=== PATIENT | female | born 1945 | race Two or more races ===

== ENCOUNTER → 2016-07-30 | Outpatient (CLI) | payer OTHER, MEDICARE ==
--- NOTE | 2016-07-30 17:26 | DX ---
Right knee, 3 views History: Pain. Comparison: None available. Findings: No fracture is identified. Alignment is normal. Bone mineralization is normal. Small patell ar osteophytes are present without significant joint space narrowing. Chondrocalcinosis is noted. The re is no joint effusion. Impression: Chondrocalcinosis with minimal patellofemoral osteoarthritis.
== END ==
LOC: CIMAGING 11:00
PROVIDERS: ATTEND Family Medicine
DX: M11.261 Other chondrocalcinosis, right knee (principal)
CPT/HCPCS: 73562-PO

== ENCOUNTER → 2016-08-30 | Outpatient (CLI) | payer OTHER, MEDICARE ==
--- NOTE | 2016-08-30 17:59 | MR ---
Limited MRI Examination of the Right Hip History: Severe right hip pain. Discussion: A limited examination was obtained as the patient was unable to tolerate the study second mt to right hip pain. After localizer, only a coronal T1-weighted series was obtained. Findings: The single coronal T1-weighted series demonstrates severe volume loss and collapse of the r ight femoral head with [id number] articulation with the acetabulum. This may be secondary to avascu lar necrosis or advanced degenerative arthropathy. There is loss of approximately 50% volume of the r ight femoral head. Associated right hip joint effusion, moderate size. Prior left hip arthroplasty with metallic artifact. Sacroiliac joints and symphysis pubis appear grossly normal. Impression: 1. Markedly limited examination secondary to advanced right hip pain. Examination could be reschedule d with intravenous sedation, as clinically necessary. 2. Limited exam demonstrates marked loss of volume and collapse of the right femoral head with advanc ed osteoarthritis. 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
== END ==
LOC: FIMAGING 09:14
PROVIDERS: ATTEND Physician Assistant
DX: M25.551 Pain in right hip (principal); M16.11 Unilateral primary osteoarthritis, right hip; M25.451 Effusion, right hip; R93.8 Abnormal findings on diagnostic imaging of other specified body structures

== ENCOUNTER 2016-09-26 14:15 | Inpatient (IN) | payer OTHER, MEDICARE ==
[2016-10-01 11:04] LABS: % IMMATURE GRANULYOCYTES 0.3 % (0.0-1.1); ABSOLUTE IMMATURE GRANULOCYTES 0.03 10^3/uL (0.00-0.10); ADD DIFF? NO; ADD MORPH? NO; ADD SCAN? NO; ATYPICAL LYMPHOCYTE FLAG 0 (0-99); FRAGMENT RBC FLAG 0 (0-99); HEMATOCRIT 43.9 % (38.0-47.0); LEFT SHIFT FLG 0 (0-99); LIPEMIA HEMOLYSIS FLAG 90 (0-99); MEAN CELL HEMOGLOBIN CONCENTR. 34.2 g/dL (32.4-36.7); MEAN CELL VOLUME 93.6 fL (81.5-99.8); MEAN PLATELET VOLUME 8.8 fL (8.7-11.7); PLATELET CLUMPS FLAG 0 (0-99); PLATELET COUNT 361 10^3/uL (150-400); RED BLOOD CELL COUNT 4.69 10^6/uL (4.18-5.33); RED CELL DISTRIBUTION WIDTH 12.8 % (11.5-15.2)
[2016-10-10] MEDS ORDERED: DEXAMETHASONE 4 MG/ML VIAL IVP ONE (06:00)
[2016-10-10] MEDS ORDERED: CEFAZOLIN 2 GM/DEXTR 100 ML IV ONE (06:00)
[2016-10-10] MEDS ORDERED: ROPI/epiNEPH/KETOROLAC JOINT COCKTAIL IU ONE (06:00)
[2016-10-10] MEDS ORDERED: CHLORHEXIDINE GLUC HIBICLENS 118 ML BTL TP ONE (06:00)
[2016-10-10] MEDS ORDERED: TRANEXAMIC ACID 3,000 MG in NS 50 ML IRR ONE (06:00)
[2016-10-10] MEDS ORDERED: FAMOTIDINE 20 MG TAB PO ONE (06:00)
[2016-10-10] MEDS ORDERED: ACETAMINOPHEN 325 MG TAB PO ONE (06:00)
[2016-10-10] MEDS ORDERED: LIDOCAINE 1% 2 ML INJ ONE (06:46)
[2016-10-10] MEDS ORDERED: SKIN ADHESIVE (DERMABOND) 1 EACH TP ONE (06:47)
[2016-10-10] MEDS ORDERED: TRANEXAMIC ACID 3,000 MG/50 ML BAG IRR ONE (06:47)
[2016-10-10] MEDS ORDERED: fentaNYL 100 MCG/2 ML INJ ONE (07:30)
[2016-10-10] MEDS ORDERED: PROPOFOL/EMULSION 500 MG/50 ML BOTTLE IV ONE (07:31)
[2016-10-10] MEDS ORDERED: LIDOCAINE 2% 5 ML SDV ONE (07:39)
[2016-10-10] MEDS ORDERED: LIDOCAINE 1% 5 ML SDV ID PRN (07:41)
[2016-10-10] MEDS ORDERED: LR 1,000 ML IV ONE (07:41)
[2016-10-10] MEDS ORDERED: MIDAZOLAM 2 MG/2 ML VIAL ONE (07:47)
[2016-10-10] MEDS ORDERED: KETAMINE 100 MG/10 ML SYR IVP ONE (08:38)
[2016-10-10] MEDS ORDERED: epHEDrine SULFATE 10 MG/ML SYR ONE (08:58)
--- NOTE | 2016-10-10 09:23 | POSTOPPROG ---
Post Op Note Date of Operation: 10/10/16 Surgeon: Agnes Paul House Painter: andrew paul Anesthesiologist: dr. de guzman Anesthesia: Spinal Pre-op Diagnosis: right hip OA Post-op Diagnosis: same Indication: right hip pain due to OA that failed conservative measures Procedure: R KAREN ant approach Findings: severe hip OA Inf/Abcess present in the surg proc area at time of surgery?: No EBL: 100-500
[2016-10-10] MEDS ORDERED: LACTULOSE 20 GM/30 ML UDCUP PO PRN (09:24)
[2016-10-10] MEDS ORDERED: diphenhydrAMINE 25 MG CAP PO PRN (09:24)
[2016-10-10] MEDS ORDERED: ONDANSETRON 4 MG/2 ML VIAL IVP PRN (09:24)
[2016-10-10] MEDS ORDERED: TEMAZEPAM 15 MG CAP PO PRN (09:24)
[2016-10-10] MEDS ORDERED: METOCLOPRAMIDE 10 MG/2 ML VIAL IVP PRN (09:24)
[2016-10-10] MEDS ORDERED: CYCLOBENZAPRINE 10 MG TAB PO PRN (09:24)
[2016-10-10] MEDS ORDERED: PHARMACY PAIN CONSULT 1 EA MISC PRN (09:24)
[2016-10-10] MEDS ORDERED: ONDANSETRON DISINTEGRATING 4 MG TAB PO PRN (09:24)
[2016-10-10] MEDS ORDERED: DIPHENOXYLATE/ATROPINE LOMOTIL 1 TAB PO PRN (09:24)
[2016-10-10] MEDS ORDERED: POLYETHYLENE GLYCOL 3350 17 GM PKT PO PRN (09:24)
[2016-10-10] MEDS ORDERED: BISACODYL 10 MG SUPP PR PRN (09:24)
[2016-10-10] MEDS ORDERED: PROMETHAZINE HCL 25 MG SUPPR PR PRN (09:24)
[2016-10-10] MEDS ORDERED: MAGNESIUM HYDROXIDE 30 ML UDCUP PO PRN (09:24)
[2016-10-10] MEDS ORDERED: valACYclovir 500 MG TAB PO PRN (09:26)
[2016-10-10] MEDS ORDERED: LR 1,000 ML IV SCH (09:30)
[2016-10-10] MEDS: ACETAMINOPHEN 325 MG TAB PO SCH ×3 (11:41→23:48)
[2016-10-10] MEDS: oxyCODONE IR 5 MG TAB PO PRN ×4 (13:06→23:48)
[2016-10-10] MEDS: ceFAZolin 2 GM/DEXTROSE 100 ML IV SCH ×2 (13:27→21:18)
[2016-10-10] MEDS ORDERED: NON-FORMULARY NEW DRUG (Simvastatin [Simvastatin] 10 MG) PO SCH (18:00)
[2016-10-10 19:08] VITALS: RESP 16
[2016-10-10] MEDS: FAMOTIDINE 20 MG TAB PO SCH (19:52)
[2016-10-10] MEDS: ASPIRIN 325 MG TAB PO SCH (19:52)
[2016-10-10] MEDS: SENNOSIDES/DOCUSATE SODIUM TAB PO SCH (19:52)
[2016-10-11] MEDS: ACETAMINOPHEN 325 MG TAB PO SCH ×2 (04:39→11:28)
[2016-10-11] MEDS: oxyCODONE IR 5 MG TAB PO PRN ×3 (04:39→11:28)
[2016-10-11 05:04] LABS: HEMATOCRIT 33.7 % (38.0-47.0); HEMOGLOBIN 11.2 g/dL (12.6-16.3)
[2016-10-11 07:24] VITALS: BP 132/70; PULSE 80; TEMP 98.4; O2SAT 95
[2016-10-11] MEDS: ASPIRIN 325 MG TAB PO SCH (08:29)
[2016-10-11] MEDS: FAMOTIDINE 20 MG TAB PO SCH (08:29)
[2016-10-11] MEDS: SENNOSIDES/DOCUSATE SODIUM TAB PO SCH (08:30)
[2016-10-11] MEDS ORDERED: ATORVASTATIN CALCIUM 10 MG TAB PO SCH (09:00)
[2016-10-11] MEDS ORDERED: FLUoxetine 20 MG CAP PO SCH (09:00)
[2016-10-11] MEDS ORDERED: NON-FORMULARY NEW DRUG (Fluoxetine Hcl [Prozac 40 Mg] 40 MG) PO SCH (09:00)
--- NOTE | 2016-10-11 09:42 | SOAPPROG ---
SOAP Progress Note Assessment/Plan: Assessment: Jackie is doing well POD 1 s/p R KAREN 1. pain management: pain is well controlled on oral pain meds 2. VTEppx: recommend ASA 325mg daily for 3 weeks. rec NYLA and SCDs 3. Anemia: level expected initially postop, asymptomatic 4. D/c planning: recommend d/c to home pending release from PT today. Plan: 10/11/16 09:40 Subjective: Jackie is doing well today, denies SOB, chest pain and N/V. Objective: Vital Signs Temp Pulse Resp BP Pulse Ox 36.9 C 80 16 132/70 H 95 10/11/16 07:23 10/11/16 07:23 10/11/16 07:23 10/11/16 07:23 10/11/16 07:23 Laboratory Results 10/11/16 04:47 10/10/16 10/11/16 10/12/16 05:59 05:59 05:59 Intake Total 4150 Output Total 2150 Balance 1999 RLE: incision dressing is clean and dry, NVI, +pf/df ICD10 Worksheet Patient Problems: Problems Problem Status Onset Primary localized osteoarthritis of right hip Acute
--- NOTE | 2016-10-11 11:11 | GOP ---
[f rep st] OPERATIVE REPORT DATE OF OPERATION: 10/10/2016 SURGEON: Charlie Chino MD ICD 9 CODER: Terri Chino, NIKITA. ANESTHESIA: Spinal. PREOPERATIVE DIAGNOSIS: Right hip osteoarthritis. POSTOPERATIVE DIAGNOSIS: Right hip osteoarthritis. PROCEDURE PERFORMED: Right total hip arthroplasty with x-ray. FINDINGS: ESTIMATED BLOOD LOSS: 200 cc. INDICATIONS: The patient has progressively worsening arthritis of the hip which has failed medical management. The patient understands the treatment options including continued non-operative care an d has selected surgical intervention. The patient has decided to undergo total hip arthroplasty via the direct anterior approach, understanding the risks of the procedure including, but not limited t o, neurovascular injury, infection, persistent pain, component wear and loosening, deep venous throm bosis, pulmonary embolism, limb length inequality, hip instability (including dislocation), and intr a-operative fractures. DESCRIPTION OF PROCEDURE: After proper identification of the patient including verification and mar edilia the surgical site, the patient was brought to the operating room and placed in the supine posit ion. All bony prominences were well padded. Anesthesia was induced without complication and intrav enous prophylactic antibiotics were administered prior to skin incision. The operative leg was placed in the Trumpf Arch table extension and the well leg in a [place] leg h older. The patient was prepped and draped in the usual sterile fashion. The C-arm was draped for i ntra-operative fluoroscopy to check acetabular position, femoral component position including leg le ngth and femoral offset. Attention was then drawn to surgical exposure of the hip. An incision was made with a #10 [place] er blade starting 3 cm lateral and 3 cm distal to the anterior superior iliac spine measuring 8-10 c m and coursing distally toward the greater trochanter. The skin and subcutaneous tissues were divid ed sharply down to the fascia sybil. The fascia sybil was incised in line with the skin incision expo sing the underlying tensor fascia sybil muscle. The muscle was bluntly elevated from the fascia and the first extracapsular Cobra retractor was placed laterally at the junction of the superior femoral neck and greater trochanter. The lateral femoral circumflex vessels were identified, cauterized, a nd divided with the Aquamantys bipolar cautery. The deep investing fascia of the TFL was divided to allow proper mobilization of the muscle preventing damage during the retraction. The reflected hea d of the rectus femoris muscle was elevated off the anterior hip capsule and a medial Cobra retracto r was placed just proximal to the lesser trochanter. The anterior capsulotomy was made sharply from the superolateral acetabulum to the saddle junction o f the superior femoral neck and greater trochanter, then coursing inferomedial towards the lesser tr ochanter. The retractors were then placed in the intracapsular position for femoral neck osteotomy. Corresponding to pre-operative templating, the osteotomy was made with the oscillating saw careful ly protecting the greater trochanter and soft tissues. The femoral head was removed from the acetab ulum with a corkscrew and confirmed to be severely arthritic with exposed bone, deformity and osteop hytes. Similar findings were confirmed in the acetabulum. The Arch table extension was then placed in 40 degrees external rotation. Attention was then drawn to the acetabular preparation. After placement of the anterior and posteri or Cobra retractors outside the labrum and intracapsular, the circumferential labrum was removed sha rply. The foveal contents were then removed and hemostasis obtained with cautery. The first reamer selected was sized using the removed femoral head. Reaming began with medializatio n and then commenced in 2 mm increments at 45 degrees of abduction and 15 degrees of anteversion usi ng fluoroscopic navigation. Reaming ceased 1 mm less than the definitive acetabular component and c orresponded to the pre-operative templating. The final acetabular component was inserted using fluo roscopy to achieve proper orientation yielding excellent purchase and stability in the acetabulum. The final acetabular liner was then placed and its seating confirmed. Attention was then turned to the femur. The Arch table extension was placed in extension and adduct ion, delivering the osteotomized femoral neck into the wound. A 2-pronged femoral elevator was plac ed at the calcar and another at the tip of the greater trochanter. The posterolateral capsule was r eleased with cautery allowing mobilization of the femur lateral and anterior for preparation. The e xternal rotators were visualized and preserved. A curette and rongeur were used to open the startin g point for broaching. Serial broaching started with the #0 broach and ended with the broach that e xhibited excellent fit in the proximal femur. A change in pitch during mallet strikes was accompani ed by the inability to advance the broach any further. The trial reduction was performed and fluoro scopic navigation was utilized to check limb length. Adjustments were made to equalize limb length accordingly. After the final trials were accepted they were removed and the wound was copiously lavaged. The fem oral component was seated to the same depth as the final broach and the femoral head was impacted on to the clean trunnion. The hip was then reduced for the final time and once more fluoroscopy was us ed to check that limb length equality was achieved. The wound was irrigated and closed in layers, the fascia sybil with 2-0 Quill, the subcutaneous tissu e with 2-0 Quill, and the skin with Dermabond. Sterile dressings were applied. Final sharps and sp onge counts were accurate. The patient was then transferred to a hospital bed and brought to the re covery room in stable condition. IMPLANTS: Accolade II size 2 at 132, acetabular component 48 mm Tritanium. Liner is a Trident X3, 33 mm. The head is a Biolox Delta 32 mm +4. /[id number]/MODL
--- NOTE | 2016-10-11 11:26 | GDS ---
[f rep st] DISCHARGE SUMMARY ADMISSION DIAGNOSIS: Right hip osteoarthritis. DISCHARGE DIAGNOSIS: Right hip osteoarthritis. PROCEDURE: Right total hip arthroplasty. VTE PROPHYLAXIS: Aspirin recommend 3 weeks daily. BRIEF DESCRIPTION OF HOSPITAL STAY: Patient was admitted for an elective joint arthroplasty. The p atient tolerated the procedure well and has passed physical therapy. The patient was given appropri ate antibiotic prophylaxis and venous thromboembolism prophylaxis. The patient's pain was well cont rolled on oral pain medication, patient was holding down food, and had urinated. Decision was made to discharge the patient. The patient was given post-operative prescriptions pre-operatively. PLAN: Please follow up with Dr. Chino's office as scheduled October 30 at 10:45 a.m. /[id number]/MODL
== END 2016-10-11 12:01 | disposition home or self-care (01) | DRG 470 ==
LOC: F3N 10-10 05:52
PROVIDERS: ADMIT Orthopaedic Surgery; ATTEND Orthopaedic Surgery
PROC: 0SR904Z Replacement of Right Hip Joint with Ceramic on Polyethylene Synthetic Substitute, Open Approach (ICD-10-PCS; principal; 2016-10-10 08:15)
DX: M16.11 Unilateral primary osteoarthritis, right hip (principal); I10 Essential (primary) hypertension; E78.00 Pure hypercholesterolemia, unspecified
CPT/HCPCS: 97110-GP; 97116-GP; 97161-GP; 97165-GO; G8978-GP-CI; G8978-GP-CJ; G8979-GP-CI; G8980-GP-CI; G8987-GO-CI; G8988-GO-CI; G8989-GO-CI; J0171; J0690; J1100; J1885; J2250; J2704; J2795; J3010

== ENCOUNTER → 2017-01-03 | Outpatient (CLI) | payer OTHER, MEDICARE | LOC: FIMAGING 15:07 | PROVIDERS: ATTEND Orthopaedic Surgery | DX: M23.241 Derangement of anterior horn of lateral meniscus due to old tear or injury, right knee (principal); M23.221 Derangement of posterior horn of medial meniscus due to old tear or injury, right knee; M24.10 Other articular cartilage disorders, unspecified site; M22.41 Chondromalacia patellae, right knee; M25.461 Effusion, right knee; M25.561 Pain in right knee; M76.891 Other specified enthesopathies of right lower limb, excluding foot ==

== ENCOUNTER → 2017-06-23 | Outpatient (CLI) | payer OTHER, MEDICARE | LOC: CIMAGING 10:06 | PROVIDERS: ATTEND Family Medicine | DX: Z12.31 Encounter for screening mammogram for malignant neoplasm of breast (principal) | CPT/HCPCS: G0202 ==

== ENCOUNTER → 2017-11-23 | Outpatient (CLI) | payer OTHER, MEDICARE | LOC: CIMAGING 15:37 | PROVIDERS: ATTEND Physician Assistant Medical | DX: R29.898 Other symptoms and signs involving the musculoskeletal system (principal) | CPT/HCPCS: 73140-PO ==

== ENCOUNTER → 2018-10-18 | Outpatient (CLI) | payer OTHER, MEDICARE | LOC: EMCIMAGING 08:47 | PROVIDERS: ATTEND Family Medicine | DX: Z12.31 Encounter for screening mammogram for malignant neoplasm of breast (principal); Z13.820 Encounter for screening for osteoporosis; Z78.0 Asymptomatic menopausal state; Z96.643 Presence of artificial hip joint, bilateral | CPT/HCPCS: 77067-PN; 77080-PN ==

== ENCOUNTER → 2018-11-15 | Outpatient (CLI) | payer OTHER, MEDICARE | LOC: EMCIMAGING 12:30 | PROVIDERS: ATTEND Physician Assistant Medical | DX: M79.672 Pain in left foot (principal); M79.89 Other specified soft tissue disorders | CPT/HCPCS: 73630-PN ==

== ENCOUNTER → 2019-01-06 | Outpatient (CLI) | payer OTHER, MEDICARE | LOC: EMCIMAGING 14:57 ==